=== PATIENT | female | born 1985 | race Caucasian/White ===

== ENCOUNTER → 2021-10-28 13:21 | Outpatient (CLI) | payer OTHER, SELFPAY ==
[2021-10-28 15:25] LABS: COVID19 -Nasal RAPID POSITIVE (Negative)
== END ==
PROVIDERS: PCP Family Medicine; Referring Provider Physician Assistant; Visit Provider Physician Assistant
DX: U07.1 COVID-19 (principal); Z20.822 Contact with and (suspected) exposure to COVID-19
CPT/HCPCS: 87635